=== PATIENT | male | born 2005 | race Two or more races ===

== ENCOUNTER 2024-03-05 03:45 | Emergency (ER) | payer MEDICAID ==
[~2024-03-05] VITALS: Ht 162.6 cm; Wt 78.1 kg
[2024-03-05 04:01] VITALS: BP 157/92; RESP 20; O2SAT 100
[2024-03-05 04:03] VITALS: PULSE 139
--- NOTE | 2024-03-05 04:09 | ED.PDOC ---
SOB-HPI HPI Comments 18-year-old male who came to ER for shortness of breath. Patient states for over the past week he has been having shortness of breath, noted worsening of shortness of breath whenever he lays down, accompanied by occasional dry cough. Denies any chest pains. The hours ago noted worsening of shortness of breath with palpitations and wheezing prompted patient to come to the ER. Upon arrival patient is saturating 100% on room air, but was tachycardic at 140s. Recently had bilateral pneumonia, and patient states symptoms are similar to it Chief Complaint: Shortness of Breath Time Seen by MD: 04:08 Reviewed notes: Nurses Notes Information Source: Patient Mode of Arrival: Ambulatory Severity: Moderate Timing: Days Duration: Intermittent Context: With Light Exertion PE Risk Factors: None History of: Recent URI Prehospital treatment: None Modifying Factors: Nothing Associated Signs and Symptoms: Wheeze, Cough Quality: Tightness If cough with SOB: Non-Productive Past Medical History PAST MEDICAL HISTORY: HTN Past Medical History (Other): Bilateral pneumonia Surgical History: Denies all surgeries Family History Family History: Reviewed,noncontributory to illness Social History Smoker: Cigarettes Alcohol: Denies ETOH Use Drugs: Denies Drug Use Lives In: Home Constitutional: denies: chills, diaphoresis, fatigue, fever, malaise, sweats, weakness, others EENTM: denies: blurred vision, double vision, ear bleeding, ear discharge, ear drainage, ear pain, ear ringing, eye pain, eye redness, hearing loss, mouth pain, mouth swelling, nasal discharge, nose bleeding, nose congestion, nose pain, photophobia, tearing, throat pain, throat swelling, voice changes, others Respiratory: reports: cough, orthopnea, SOB at rest, shortness of breath, wheezing; denies: hemoptysis, SOB with excertion, stridor, others Cardiovascular: reports: chest pain; denies: dizzy spells, diaphoresis, Dyspnea on exertion, edema, irregular heart beat, left arm pain, lightheadedness, palpitations, PND, syncope, others Gastrointestinal: denies: abdomen distended, abdominal pain, blood streaked bowels, constipated, diarrhea, dysphagia, difficulty swallowing, hematemesis, melena, nausea, poor appetite, poor fluid intake, rectal bleeding, rectal pain, vomiting, others Genitourinary: denies: burning, dysuria, flank pain, frequency, hematuria, incontinence, penile discharge, penile sore, pain, testicle pain, testicle swelling, urgency, others Neurological: denies: dizziness, fainting, headache, left sided numbness, left sided weakness, numbness, paresthesia, pre-existing deficit, right sided numbness, right sided weakness, seizure, speech problems, tingling, tremors, weakness, others Musculoskeletal: denies: back pain, gout, joint pain, joint swelling, muscle pain, muscle stiffness, neck pain, others Integumetry: denies: bruises, change in color, change in hair/nails, dryness, laceration, lesions, lumps, rash, wounds, others Allergic/Immunocompromised: denies: Difficulty Healing, Frequent Infections, Hives, Itching, others Hematologic/Lymphatic: denies: anemia, blood clots, easy bleeding, easy bruising, swollen glands, others Endocrine: denies: excessive hunger, excessive sweating, excessive thirst, excessive urination, flushing, intolerance to cold, intolerance to heat, unexplained weight gain, unexplained weight loss, others Psychiatric: denies: anxiety, bipolar disorder, depression, hopeless, panic disorder, schizophrenia, sleepless, suicidal, others Physical Exam General Appearance: Mild Distress, Normal HEENT: Normal ENT Inspection, Pharynx Normal, TMs Normal Neck: Full Range of Motion, Non-Tender, Normal, Normal Inspection Respiratory: Chest Non-Tender, Lungs Clear, No Accessory Muscle Use, No Respiratory Distress, Normal Breath Sounds Cardiovascular: No Edema, No JVD, No Murmur, No Gallop, Normal Peripheral Pulses, Regular Rate/Rhythm, Tachycardia Breast Exam: Deferred Gastrointestinal: No Organomegaly, Non Tender, No Pulsatile Mass, Normal Bowel Sounds, Soft Genitalia: Deferred Pelvic: Deferred Rectal: Deferred Extremities: No calf tenderness, Normal capillary refill, Normal inspection, Normal range of motion, Non-tender, No pedal edema Musculoskeletal : Apperance: Normal Neurologic: Alert, plant hr manager II-XII nml as Tested, No Motor Deficits, Normal Affect, Normal Mood, No Sensory Deficits Cerebellar Function: Normal Reflexes: Normal Skin: Dry, Normal Color, Warm Lymphatic: No Adenopathy Was a procedure done? Was a procedure done?: No Differential Dx Differential Diagnosis: Anxiety, Asthma, Bronchitis, Pneumonia, Respiratory Distress, URI X-Ray, Labs, Meds, VS Vital Signs Date Time Temp Pulse Resp B/P (MAP) Pulse Ox O2 Delivery O2 Flow Rate FiO2 03/05/24 04:03 139 03/05/24 04:01 98.6 140 20 157/92 (113) 100 03/05/24 03:59 20 100 Room Air* 0 21 Time of 1ST Reevaluation: 04:05 Reevaluation 1ST: Unchanged Time of 2ND Reevaluation: 05:45 (Lab results pending, possible CTA chest if D- dimer elevated) Patient Education/Counseling: Diagnosis, Treatment Family Education/Counseling: No Family Present Departure 1 Departure Time of Disposition: 06:00 (The plan was to check labs and possible CTA chest to rule out PE due to the tachycardia but patient eloped) Impression: Primary Impression: Palpitations Disposition: 07 LEFT AWOL/ELOPED Condition: Guarded Critical Care Note Critical Care Time?: No Stability Stability form required: No Heart Score Heart Score: Heart Score Response (Comments) Value History Slightly Suspicious 0 EKG Repolarization Disturb 1 Age <45 0 Risk Factors 1 or 2 risk factors 1 Troponin Normal limit 0 Total 2 I personally scribed for ROSITA AMADO MD ([email or web address]) on 03/05/24 at 04:09. Electronically submitted by Robert Chery ([facility]). ROSITA AMADO MD Mar 05, 2024 04:09
--- NOTE | 2024-03-06 07:41 | ECG ---
[facility] Test Date: 2024-03-05 Test Time: 04:03:01 Pat Name: LORETTA XIONG Department: ER Room: Gender: M Acquisition Consultant: HELEN : 2005 Requested By: ROSITA AMADO Order Number: [id number] Reading MD: Jarret Lopez Measurements Intervals [place] Rate: 139 P: 62 LA: 142 QRS: 84 QRSD: 91 T: -5 QT: 281 QTc: 428 Interpretive Statements Sinus tachycardia Borderline T wave abnormalities Baseline wander in lead(s) I,II,III,aVR,aVF,V5,V6 Electronically Signed On 03-08-2024 13:04:23 PST by Jarret Lopez Please click the below link to view image of tracing.
== END 2024-03-05 07:46 | disposition left against medical advice (07) ==
LOC: ER 03:45
DX: R00.2 Palpitations (principal); R00.0 Tachycardia, unspecified; I10 Essential (primary) hypertension; F17.210 Nicotine dependence, cigarettes, uncomplicated
CPT/HCPCS: 93005